=== PATIENT | male | born 1980 | race Two or more races ===

== ENCOUNTER 2023-12-15 15:45 | Emergency (ER) | payer OTHER ==
[2023-12-15] MEDS ORDERED: ACETAMINOPHEN 500 MG TABLET PO ONE (19:00)
== END 2023-12-15 19:55 | disposition still patient (30) ==
LOC: EMS 15:46
DX: S09.90XA Unspecified injury of head, initial encounter (principal); Y08.89XA Assault by other specified means, initial encounter; Y93.89 Activity, other specified; Y92.89 Other specified places as the place of occurrence of the external cause; Y99.8 Other external cause status
CPT/HCPCS: 99283